=== PATIENT | female | born 1940 | race Caucasian/White ===

== ENCOUNTER → 2017-01-13 | Outpatient (CLI) | payer OTHER ==
[~2017-01-13] MED LIST: ACETAMINOPHEN PO; ASPIRIN ENTERI325 M1 PO; FLEXERIL; FOSAMAX; KCL PO; LASIX PO; MAG-OXIDE400 MG PO; MAXZIDE-25 MG1 UDTAB; NIACIN500 M1 PO; OMEGA 3 FISH1 CAP.EC PO; POSTURE600 MG; PRILOSEC; PRILOSEC20 MG PO; ULORIC80 MG PO; V; VICODIN 5/1 TAB 5/50; VIT E; VITAMIN D1000 UNI1 PO; ZETIA PO; ZOCOR
--- NOTE | ~2017-01-13 | US6 ---
[facility] A Service [facility] RADIOLOGY TEXT RESULTS PATIENT: VASQUEZ ZAPATA LOCATION: SGUS : 40 UNIT #: [id number] AGE: [address]: Brandt Alexandre MD SEX: F ORDER DR: [id number] [place] [id number] O MR#: [id number] Acc #: [id number] NAME: VASQUEZ ZAPATA : 1940 SEX: F STUDY DATE/TIME: 01/13/2017 10:00 UNIT: SGUS ROOM: STUDY DESCRIPTION: US Abdominal Limited Attending Physician: Brandt Alexandre M.D. Referring Physician: Brandt Alexandre M.D. Ordering Physician: Brandt Alexandre M.D. Primary Care Physician: Basilio Argueta M.D. MEDICAL IMAGING REPORT This report is preliminary unless electronic signature is present. EXAM Right upper quadrant ultrasound 01/13/2017 INDICATIONS Elevated liver enzymes in a 76-year-old female. History of cholecystectomy, reflux, diabetes. Elevated alkaline phosphatase. TECHNIQUE Sonographic imaging of the right upper quadrant was performed. No relevant comparisons. Correlation is made with renal ultrasound 11/16/2012 FINDINGS The pancreas is not visualized or assessed probably obscured by bowel gas. Survey images of the liver demonstrate long axis length of 13.1 cm. No focal liver mass, ascites or intrahepatic ductal dilatation. Portions of liver were also obscured by bowel gas. The liver parenchyma is difficult to penetrate and echogenic suggestive of fatty infiltration. The gallbladder is surgically absent. Extrahepatic common bile duct measures 2-3 mm. Right kidney nonobstructed and measures 9.6 cm long axis. IMPRESSION 1. Imaging features most characteristic of fatty infiltration of the liver. 2. Portion of the abdomen were obscured by bowel gas including the pancreas and liver. 3. Surgical absence of the gallbladder. Dictated by... Jayant Mercado M.D. [facility] A [facility] RADIOLOGY TEXT RESULTS PATIENT: VASQUEZ ZAPATA LOCATION: SG : 40 UNIT #: [id number] AGE: [address]: Brandt Alexandre MD SEX: F ORDER DR: THIS IS AN ELECTRONICALLY VERIFIED REPORT Jayant Mercado M.D. at 01/13/2017 7:08 PM Anastacia TD: 01/13/2017 15:28 JOB #: [id number] MEDICAL IMAGING REPORT Page 1 of 1
[2017-01-13 10:54] LABS: ALBUMIN SERUM 3.6 g/dL (3.5-5.0); BILIRUBIN,TOTAL 0.2 mg/dL (0.2-2.0); BUN/CREATININE RATIO 31.42; CALCIUM SERUM 9.4 mg/dL (8.4-10.2); CREATININE SERUM 0.7 mg/dL (0.6-1.4); GLOM FILT RATE Estimated 84.2 mL/min (>60); POTASSIUM 4.7 mmol/L (3.5-5.1); PROTEIN TOTAL SERUM 7.3 g/dL (6.0-8.3)
[2017-01-16 13:50] LABS: ANA SCREEN Negative (Negative); MITOCHONDRIA M2 AB (IGG) <=20.0 U (<=20.0)
== END | disposition home or self-care (01) ==
LOC: SGUS 09:40
PROVIDERS: Internal Medicine Gastroenterology
DX: R74.8 Abnormal levels of other serum enzymes (principal); Z90.49 Acquired absence of other specified parts of digestive tract
CPT/HCPCS: 36415; 76705; 80053; 83520; 86038; 86039